=== PATIENT | female | born 1975 | race Caucasian/White ===

== ENCOUNTER 2016-12-16 07:40 | Day surgery (SDC) | payer MEDICAID ==
[~2016-12-16] VITALS: Ht 156.2 cm; Wt 62.4 kg
[2016-12-16] VITALS (12 sets, daily range): BP systolic 91–130; BP diastolic 45–68; PULSE 68–76; RESP 15–19; Ht 156.2 cm; Wt 62.4 kg
[~2016-12-16 07:40] MED LIST: CEFAZOLIN 2 GM/50 ML (PMX) 50 ML IVPB SCH; SOD CHLORIDE 0.9% 1,000 ML IV SCH
[2016-12-16] MEDS ORDERED: TAMO10TA20 PO (08:31)
[2016-12-16] MEDS ORDERED: NOL20 PO (08:33)
[2016-12-16 09:17] LABS: BASOPHILS % 0.3 % (0.0-2.0); EOSINOPHILS # 0.1 10^3/ul (0.0-0.5); EOSINOPHILS % 1.7 % (0.0-7.0); HEMATOCRIT 34.4 % (37.0-47.0); HEMOGLOBIN 11.7 g/dl (12.0-16.0); LYMPHOCYTES # 1.5 10^3/ul (0.8-2.9); LYMPHOCYTES % 21.6 % (15.0-51.0); MEAN CORPUSCULAR HEMOGLOBIN 31.3 pg (29.0-33.0); MEAN PLATELET VOLUME 9.6 fl (7.4-10.4); MONOCYTE # 0.5 10^3/ul (0.3-0.9); MONOCYTES % 6.8 % (0.0-11.0); NEUTROPHILS % 69.3 % (39.0-77.0); PLATELET COUNT 254 10^3/UL (140-415); RED BLOOD COUNT 3.74 10^6/ul (4.20-5.40); RED CELL DISTRIBUTION WIDTH 12.3 % (11.5-14.5); WHITE BLOOD COUNT 6.9 10^3/ul (4.8-10.8)
[2016-12-16 09:47] LABS: INR 0.93; PROTIME 12.5 Sec (12.2-14.2)
[2016-12-16 09:48] LABS: PARTIAL THROMBOPLASTIN TIME 26.3 Sec (25.0-35.0)
[2016-12-16 09:54] LABS: ALBUMIN 3.7 g/dl (3.3-4.9); ALBUMIN/GLOBULIN RATIO 1.08; BILIRUBIN,INDIRECT 0.2 mg/dl (0-1.1); BILIRUBIN,TOTAL 0.2 mg/dl (0.2-1.3); CALCIUM 8.7 mg/dl (8.4-10.2); CREATININE 0.53 mg/dl (0.44-1.00); POTASSIUM 4.3 mmol/L (3.5-5.1); TOTAL PROTEIN 7.1 g/dl (6.1-8.1)
[2016-12-16] MEDS ORDERED: FENTAnyl 50 MCG/ML VIAL ONE (09:59)
[2016-12-16] MEDS ORDERED: MIDAZOLAM 1 MG/ML 2 ML INJ ONE (09:59)
[2016-12-16] MEDS ORDERED: PROPOFOL 20 ML ONE (09:59)
[2016-12-16] MEDS ORDERED: LIDOCAINE 2%/EPI 30 ML INJ ONE (10:00)
[2016-12-16] MEDS ORDERED: OXYCODONE/ACETAMINOPHEN (5/325) TAB PO PRN ×2 (10:30)
[2016-12-16] MEDS ORDERED: DIPHENHYDRAMINE 50 MG INJ IV PRN (10:30)
[2016-12-16] MEDS ORDERED: ONDANSETRON 4 MG INJ IV PRN (10:30)
[2016-12-16] MEDS ORDERED: METOCLOPRAMIDE 10 MG INJ IV PRN (10:30)
[2016-12-16] MEDS ORDERED: HYDROmorphONE (0.2 MG/ML) 10ML SYG IV PRN ×3 (10:30)
[2016-12-16] MEDS ORDERED: MEPERIDINE 25 MG INJ IV PRN (10:30)
--- NOTE | 2016-12-16 10:54 | OPR ---
DATE OF OPERATION: 12/16/2016 PREOPERATIVE DIAGNOSIS: History of right breast cancer, need for chemo port removal. POSTOPERATIVE DIAGNOSIS: History of right breast cancer, need for chemo port removal. OPERATION PERFORMED: Removal of chemo port, left subclavian position. ANESTHESIA: General. ANESTHESIOLOGIST: Dr. Gross. SURGEON: Dr. Gross. SURVEY RESEARCH ANALYST: Dr. Vidhi MD. INDICATIONS FOR PROCEDURE: Patient is a 41-year-old female, who I had previously treated for invasive cancer of her right breast. She successfully completed her treatment and requested removal of her chemo port. She consented and was scheduled for surgery. OPERATIVE PROCEDURE: Patient was brought to the operating theater, placed under general anesthesia. The left anterior thoracic wall was prepped and draped in usual sterile fashion. The patient was placed in the Trendelenburg position and a previous surgical incisional scar was re-incised with a 15 blade scalpel. Subcutaneous tissue was dissected with cautery. The pseudocapsule surrounding the port was incised. The port was gently elevated and removed. It appeared to be grossly intact and it was sent for gross pathologic analysis to confirm it was intact. The wound was then inspected and minimal bleeding was controlled with cautery. The skin was reapproximated with a 4-0 Vicryl suture in subcuticular fashion. Benzoin and Steri-Strips were applied. Patient tolerated procedure well. ESTIMATED BLOOD LOSS: 5 mL. COMPLICATIONS: There were no complications. DISPOSITION: The patient was transported in stable condition to the recovery room. Dictated By: El Gross MD /[email or web address]/[email or web address] /Document#: [id number]
== END 2016-12-16 12:38 | disposition home or self-care (01) ==
LOC: SDS 07:40
PROVIDERS: ATTEND Surgery Surgical Oncology
DX: Z45.2 Encounter for adjustment and management of vascular access device (principal); Z85.3 Personal history of malignant neoplasm of breast
CPT/HCPCS: 36590; 80053; 85025; 85610; 85730; 88300; J2250; Z7512; Z7610; J3010